=== PATIENT | female | born 1990 | race Two or more races ===

== ENCOUNTER 2019-10-11 20:03 | Emergency (ER) | payer OTHER ==
[~2019-10-11] VITALS: Ht 162.6 cm; Wt 62.4 kg
[2019-10-11 20:06] VITALS: BP 123/84
[2019-10-11] MEDS ORDERED: ONDANSETRON 2MG/ML, 2ML IVPush ONE (20:30)
[2019-10-11] MEDS ORDERED: KETOROLAC 30 MG/1 ML IVPush ONE (20:30)
[2019-10-11] MEDS ORDERED: SODIUM CHLORIDE 0.9% 1,000ML IVBOLUS ONE (20:30)
[2019-10-11] MEDS ORDERED: SODIUM CHLORIDE FLUSH 10ML SYR IVF ONE (20:30)
[2019-10-11] MEDS ORDERED: IBUPROFEN 600 MG TABLET PO ONE (20:30)
[2019-10-11] MEDS ORDERED: KETOROLAC 30 MG/1 ML ONE (20:37)
[2019-10-11] MEDS ORDERED: ONDANSETRON 2MG/ML, 2ML ONE (20:37)
[2019-10-11 20:45] LABS: RAPID INFLUENZA A Negative (Negative); RAPID INFLUENZA B POSITIVE (Negative)
[2019-10-11] MEDS ORDERED: OSELTAMIVIR 75 MG CAPSULE PO ONE (21:00)
--- NOTE | 2019-10-11 21:01 | NUR ---
REQUESTED MEDICATION FROM PHARMACY
[2019-10-11] MEDS ORDERED: OSELTAMIVIR 75 MG CAPSULE ONE (21:05)
--- NOTE | 2019-10-11 21:17 | NUR ---
PT REPORTS IMPROVEMENT IN S/S WITH MEDICATIONS/FLUIDS. MEDICATED PER EMAR. AWAITING IVF TO FINISH FOR DC.
--- NOTE | 2019-10-11 21:44 | NUR ---
DC EDUCATION PROVIDED, PT DEMONSTRATES UNDERSTANDING. PT AMBULATED STEADILY TO DC WITH RN AND FRIEND.
== END 2019-10-11 21:46 ==
LOC: ED 21:05
DX: J10.1 Influenza due to other identified influenza virus with other respiratory manifestations (principal); J20.8 Acute bronchitis due to other specified organisms
CPT/HCPCS: 71046; 87400; 96374; 96375; 99284; J1885; J2405; J7030

== ENCOUNTER 2019-10-14 21:52 | Emergency (ER) | payer OTHER ==
[~2019-10-14] VITALS: Ht 162.6 cm; Wt 60.0 kg
[2019-10-14] MEDS ORDERED: ONDANSETRON ODT 4 MG ONE (22:19)
--- NOTE | 2019-10-14 22:21 | NUR ---
ZOFRAN GIVEN IN TRIAGE.
[2019-10-14] MEDS ORDERED: ONDANSETRON ODT 4 MG PO ONE (22:30)
[2019-10-14 23:04] LABS: BASOPHILS # (AUTO) 0.02 x10^3/uL (0-0.1); BASOPHILS % (AUTO) 0 % (0-1); EOSINOPHILS # (AUTO) 0.01 x10^3/uL (0-0.4); EOSINOPHILS % (AUTO) 0 % (1-7); LYMPHOCYTES # (AUTO) 1.24 x10^3/uL (1-3.4); LYMPHOCYTES % (AUTO) 17 % (22-44); MD NO; MEAN CORPUSCULAR HEMOGLOBIN 29.8 pg (27.0-34.8); MEAN CORPUSCULAR HGB CONC 33.6 g/dL (32.4-35.8); MEAN CORPUSCULAR VOLUME 88.7 fL (80-100); MEAN PLATELET VOLUME 7.8 fL (7.4-10.4); MONOCYTES # (AUTO) 0.54 x10^3/uL (0.2-0.8); MONOCYTES % (AUTO) 8 % (2-9); NEUTROPHILS % (AUTO) 75 % (42-75); PLATELET COUNT 217 x10^3/uL (130-400); RED BLOOD COUNT 4.73 x10^6/uL (3.82-5.3); RED CELL DISTRIBUTION WIDTH 12.5 % (9.6-15.2)
[2019-10-14 23:15] LABS: ANION GAP 8 mmol/L (5-15); CALCIUM 8.7 mg/dL (8.5-10.1); CHLORIDE 104 mmol/L (98-107); CREATININE 0.68 mg/dL (0.55-1.02)
[2019-10-14 23:16] LABS: ALANINE AMINOTRANSFERASE 29 U/L (12-78); ALBUMIN 3.9 g/dL (3.4-5.0)
[2019-10-14 23:20] LABS: ALKALINE PHOSPHATASE 60 U/L (45-117); BILIRUBIN,TOTAL 0.4 mg/dL (0.2-1.0); TOTAL PROTEIN 8.2 g/dL (6.4-8.2)
--- NOTE | 2019-10-14 23:38 | NUR ---
PT REPORTS IMPROVEMENT IN NAUSEA AFTER ZOFRAN. STATES, "I SHOULD'VE JUST GOTTEN THE PRESCRIPTION FOR ZOFRAN WHEN I WAS LAST SEEN". PT DENIES NEEDS AT THIS TIME. FAMILY AT BS. CHART UP FOR RECHECK.
[2019-10-15 00:25] VITALS: BP 123/91
--- NOTE | 2019-10-15 00:36 | NUR ---
D/C INSTRUCTIONS, MEDS & F/U APPT RV'WD WITH PT, SHE VERBALIZES UNDERSTANDING. RX GIVEN X1. PT AMBULATED OUT OF ED WITH MOTHER WITHOUT DIFFICULTY.
== END 2019-10-15 00:36 | disposition home or self-care (01) ==
LOC: ED 23:36
DX: R11.2 Nausea with vomiting, unspecified (principal)
CPT/HCPCS: 36415; 80053; 84703; 85025; 99283; Q0162